=== PATIENT | male | born 1975 | race Two or more races ===

== ENCOUNTER 2018-06-22 01:04 | Inpatient (IN) | payer MEDICAID ==
[~2018-06-22] VITALS: Ht 167.6 cm; Wt 89.8 kg
[2018-06-22] MEDS ORDERED: OLAN15TA2 PO (01:37)
[2018-06-22] MEDS ORDERED: OLANZapine 5 MG RAPDIS TABLET PO PRN (01:45)
[2018-06-22 02:14] VITALS: BP 113/72
[2018-06-22] MEDS ORDERED: MAGNESIUM HYDROXIDE SUSPENSION 30 ML UDCUP PO PRN (05:45)
[2018-06-22] MEDS ORDERED: PETROLATUM,WHITE 71 GM JELLY TP PRN (05:45)
[2018-06-22] MEDS ORDERED: CloNIDine HCL 0.1 MG TABLET PO PRN (05:45)
[2018-06-22] MEDS ORDERED: GuaiFENesin/D-METHORPHAN [SUGAR-FREE] 200-20MG/10 ML SYRUP UDCUP PO PRN (05:45)
[2018-06-22] MEDS ORDERED: NICOTINE 14 MG/24 HOUR PATCH TD PRN (05:45)
[2018-06-22] MEDS ORDERED: DOCUSATE SODIUM 100 MG CAPSULE PO PRN (05:45)
[2018-06-22] MEDS ORDERED: ONDANSETRON HCL 4 MG TABLET PO PRN (05:45)
[2018-06-22] MEDS ORDERED: LOPERAMIDE HCL 2 MG CAPSULE PO PRN (05:45)
[2018-06-22] MEDS ORDERED: ALBUTEROL SULFATE HFA 90 MCG/PUFF 8 GM INHALER IH PRN (05:45)
[2018-06-22] MEDS ORDERED: IBUPROFEN 400 MG TABLET PO PRN (05:45)
[2018-06-22] MEDS ORDERED: ACETAMINOPHEN 325 MG TABLET PO PRN (05:45)
[2018-06-22] MEDS ORDERED: MAG HYDROX/AL HYDROX/SIMETH ES 30 ML SUSPENSION UDCUP PO PRN (05:45)
[2018-06-22 16:46] VITALS: BP 118/66
[2018-06-22] MEDS: OLANZapine 7.5 MG TABLET PO SCH (20:35)
[2018-06-23 10:06] VITALS: BP 109/60
[2018-06-23 16:12] VITALS: BP 140/90
[2018-06-23] MEDS: OLANZapine 7.5 MG TABLET PO SCH (20:06)
[2018-06-24 05:59] VITALS: BP 110/75
[2018-06-24 08:01] VITALS: BP 117/66
[2018-06-24 08:11] LABS: BASOPHILS % (AUTO) 0.4 % (0.0-2.0); EOSINOPHILS % (AUTO) 0.8 % (1.0-6.0); HEMATOCRIT 38.2 % (41-53); HEMOGLOBIN 12.8 g/dL (13.5-17.5); LYMPHOCYTES # (AUTO) 2.9 K/uL (1.0-4.8); LYMPHOCYTES % (AUTO) 19.1 % (22.0-44.0); MEAN CORPUSCULAR HEMOGLOBIN 29.4 pg (26.0-34.0); MEAN CORPUSCULAR HGB CONC 33.4 G/dL (31.0-37.0); MEAN CORPUSCULAR VOLUME 88 fL (80-100); MONOCYTES % (AUTO) 6.7 % (2.0-9.0); NEUTROPHILS # (AUTO) 11.1 K/uL (1.8-7.7); PLATELET COUNT (AUTO) 372 K/uL (150-450); RED BLOOD CELL COUNT(AUTO) 4.35 MIL/uL (4.50-5.90); RED CELL DISTRIBUTION WIDTH 14.7 % (11.5-14.5)
[2018-06-24 08:51] LABS: ALANINE AMINOTRANSFERASE 31 U/L (12-78); ALBUMIN 3.1 g/dL (3.4-5.0); ALKALINE PHOSPHATASE 63 U/L (46-116); ANION GAP 7 mmol/L (8-16); ASPARTATE AMINOTRANSFERASE 24 U/L (15-37); BILIRUBIN,TOTAL 0.2 mg/dL (0.1-1.0); CALCIUM, TOTAL 8.7 mg/dL (8.8-10.5); CARBON DIOXIDE 28 mmol/L (22-29); CHLORIDE 103 mmol/L (98-107); CHOL/HDL RATIO 4.4 (4.2-7.3); CHOLESTEROL 144 mg/dL (131-200); CREATININE 0.87 mg/dL (0.60-1.30); FREE T4 (FREE THYROXINE) 0.74 ng/dL (0.76-1.46); GLOMERULAR FILTR. RATE CALC > 60 mL/min (>60); GLUCOSE,RANDOM 94 mg/dL (70-110); HDL CHOLESTEROL 33 mg/dL (40-60); LDL CHOL (CALC.) 84 mg/dL (0-130); POTASSIUM 4.1 mmol/L (3.5-5.1); SODIUM SERUM 138 mmol/L (136-145); THYROID STIMULATING HORMONE 1.82 uIU/mL (0.36-3.74); TOTAL PROTEIN, SERUM 6.3 g/dL (6.4-8.2); TRIGLYCERIDES 135 mg/dL (15-150); UREA NITROGEN, BLOOD 16 mg/dL (7-18)
[2018-06-24 16:05] VITALS: BP 127/68
[2018-06-24] MEDS: LORazepam 2 MG TABLET PO PRN (16:37)
[2018-06-24] MEDS: OLANZapine 7.5 MG TABLET PO SCH (20:10)
[2018-06-24] MEDS: ZOLPIDEM TARTRATE 10 MG TABLET PO PRN (20:10)
[2018-06-25 05:50] VITALS: BP 115/72
[2018-06-25 08:01] VITALS: BP 112/64
[2018-06-25] MEDS: LORazepam 2 MG TABLET PO PRN (16:29)
[2018-06-25 16:32] VITALS: BP 117/84
[2018-06-25] MEDS: ZOLPIDEM TARTRATE 10 MG TABLET PO PRN (20:15)
[2018-06-25] MEDS: OLANZapine 7.5 MG TABLET PO SCH (20:15)
[2018-06-26 07:07] VITALS: BP 126/78
[2018-06-26 07:53] LABS: BASOPHILS % (AUTO) 0.5 % (0.0-2.0); EOSINOPHILS % (AUTO) 3.3 % (1.0-6.0); HEMATOCRIT 36.3 % (41-53); HEMOGLOBIN 12.5 g/dL (13.5-17.5); LYMPHOCYTES # (AUTO) 2.9 K/uL (1.0-4.8); LYMPHOCYTES % (AUTO) 40.3 % (22.0-44.0); MEAN CORPUSCULAR HEMOGLOBIN 29.9 pg (26.0-34.0); MEAN CORPUSCULAR HGB CONC 34.5 G/dL (31.0-37.0); MEAN CORPUSCULAR VOLUME 87 fL (80-100); MONOCYTES # (AUTO) 0.6 K/uL (0.1-1.0); MONOCYTES % (AUTO) 8.7 % (2.0-9.0); NEUTROPHILS # (AUTO) 3.4 K/uL (1.8-7.7); NEUTROPHILS % (AUTO) 47.2 % (40.0-70.0); PLATELET COUNT (AUTO) 354 K/uL (150-450); RED BLOOD CELL COUNT(AUTO) 4.18 MIL/uL (4.50-5.90); RED CELL DISTRIBUTION WIDTH 14.5 % (11.5-14.5)
[2018-06-26] MEDS ORDERED: OLAN7.5T9 PO (11:11)
== END 2018-06-26 15:45 | disposition home or self-care (01) | DRG 750 ==
LOC: B3A 01:49
DX: F25.1 Schizoaffective disorder, depressive type (principal); R45.851 Suicidal ideations; Z59.0 Homelessness; E78.00 Pure hypercholesterolemia, unspecified; Z28.21 Immunization not carried out because of patient refusal; I10 Essential (primary) hypertension; D72.829 Elevated white blood cell count, unspecified; F41.9 Anxiety disorder, unspecified; G89.29 Other chronic pain; Z91.5 Personal history of self-harm; M54.9 Dorsalgia, unspecified; Z88.0 Allergy status to penicillin
CPT/HCPCS: 83036; 84439; 84443; 90686

== ENCOUNTER 2018-08-15 09:57 | Inpatient (IN) | payer SELFPAY ==
[~2018-08-15] VITALS: Ht 167.6 cm; Wt 73.5 kg
[~2018-08-15 09:57] MED LIST: OLAN7.5T9 PO
[2018-08-15 10:45] LABS: BASOPHILS % (AUTO) 0.2 % (0.0-2.0); EOSINOPHILS % (AUTO) 1.1 % (1.0-6.0); HEMATOCRIT 40.4 % (41-53); HEMOGLOBIN 13.4 g/dL (13.5-17.5); LYMPHOCYTES % (AUTO) 27.2 % (22.0-44.0); MEAN CORPUSCULAR HGB CONC 33.1 G/dL (31.0-37.0); MEAN CORPUSCULAR VOLUME 88 fL (80-100); MONOCYTES # (AUTO) 0.6 K/uL (0.1-1.0); MONOCYTES % (AUTO) 8.6 % (2.0-9.0); NEUTROPHILS # (AUTO) 4.7 K/uL (1.8-7.7); NEUTROPHILS % (AUTO) 62.9 % (40.0-70.0); PLATELET COUNT (AUTO) 353 K/uL (150-450); RED BLOOD CELL COUNT(AUTO) 4.62 MIL/uL (4.50-5.90)
[2018-08-15 10:59] LABS: ALANINE AMINOTRANSFERASE 35 U/L (12-78); ALBUMIN 3.7 g/dL (3.4-5.0); ALKALINE PHOSPHATASE 80 U/L (46-116); ANION GAP 9 mmol/L (8-16); ASPARTATE AMINOTRANSFERASE 27 U/L (15-37); BILIRUBIN,TOTAL 0.3 mg/dL (0.1-1.0); CALCIUM, TOTAL 11.4 mg/dL (8.8-10.5); CARBON DIOXIDE 24 mmol/L (22-29); CHLORIDE 102 mmol/L (98-107); GLOMERULAR FILTR. RATE CALC > 60 mL/min (>60); GLUCOSE,RANDOM 110 mg/dL (70-110); POTASSIUM 3.8 mmol/L (3.5-5.1); SODIUM SERUM 135 mmol/L (136-145); TOTAL PROTEIN, SERUM 7.2 g/dL (6.4-8.2); UREA NITROGEN, BLOOD 8 mg/dL (7-18)
[2018-08-15 11:26] LABS: AMPHET/METH SCREEN,URINE POSITIVE (NEGATIVE); BARBITURATE SCREEN, URINE NEGATIVE (NEGATIVE); BENZODIAZEPINES SCREEN,URINE NEGATIVE (NEGATIVE); CANNABINOID SCREEN,URINE NEGATIVE (NEGATIVE); COCAINE SCREEN,URINE NEGATIVE (NEGATIVE); METHADONE SCREEN, URINE NEGATIVE (NEGATIVE); OPIATE SCREEN,URINE NEGATIVE (NEGATIVE)
[2018-08-15 11:28] LABS: PHENCYCLIDINE SCREEN,URINE NEGATIVE (NEGATIVE)
[2018-08-15] MEDS ORDERED: HALOPERIDOL 5 MG TABLET PO PRN (11:30)
[2018-08-15] MEDS ORDERED: ZOLPIDEM TARTRATE 10 MG TABLET PO PRN (11:30)
[2018-08-15] MEDS ORDERED: IBUPROFEN 400 MG TABLET PO PRN ×2 (12:15→13:30)
[2018-08-15] MEDS ORDERED: ACETAMINOPHEN 325 MG TABLET PO PRN ×2 (12:15→13:30)
[2018-08-15] MEDS ORDERED: GuaiFENesin/D-METHORPHAN [SUGAR-FREE] 200-20MG/10 ML SYRUP UDCUP PO PRN (13:30)
[2018-08-15] MEDS ORDERED: MAG HYDROX/AL HYDROX/SIMETH ES 30 ML SUSPENSION UDCUP PO PRN (13:30)
[2018-08-15] MEDS ORDERED: MAGNESIUM HYDROXIDE SUSPENSION 30 ML UDCUP PO PRN (13:30)
[2018-08-15] MEDS ORDERED: CloNIDine HCL 0.1 MG TABLET PO PRN (13:30)
[2018-08-15] MEDS ORDERED: ALBUTEROL SULFATE HFA 90 MCG/PUFF 8 GM INHALER IH PRN (13:30)
[2018-08-15] MEDS ORDERED: DOCUSATE SODIUM 100 MG CAPSULE PO PRN (13:30)
[2018-08-15] MEDS ORDERED: ONDANSETRON HCL 4 MG TABLET PO PRN (13:30)
[2018-08-15] MEDS ORDERED: PETROLATUM,WHITE 71 GM JELLY TP PRN (13:30)
[2018-08-15] MEDS: LORazepam 2 MG TABLET PO PRN (13:32)
[2018-08-15 14:19] VITALS: BP 126/85
[2018-08-15 20:07] VITALS: BP 102/65
[2018-08-15] MEDS: OLANZapine 5 MG TABLET PO SCH (20:37)
[2018-08-16 04:52] LABS: BASOPHILS % (AUTO) 0.4 % (0.0-2.0); EOSINOPHILS % (AUTO) 3.4 % (1.0-6.0); HEMATOCRIT 37.4 % (41-53); HEMOGLOBIN 12.9 g/dL (13.5-17.5); LYMPHOCYTES % (AUTO) 38.9 % (22.0-44.0); MEAN CORPUSCULAR HEMOGLOBIN 29.8 pg (26.0-34.0); MEAN CORPUSCULAR HGB CONC 34.6 G/dL (31.0-37.0); MEAN CORPUSCULAR VOLUME 86 fL (80-100); MONOCYTES # (AUTO) 0.8 K/uL (0.1-1.0); MONOCYTES % (AUTO) 9.6 % (2.0-9.0); NEUTROPHILS # (AUTO) 3.7 K/uL (1.8-7.7); NEUTROPHILS % (AUTO) 47.7 % (40.0-70.0); PLATELET COUNT (AUTO) 338 K/uL (150-450); RED BLOOD CELL COUNT(AUTO) 4.35 MIL/uL (4.50-5.90); RED CELL DISTRIBUTION WIDTH 14.7 % (11.5-14.5)
[2018-08-16 05:00] LABS: HEMOGLOBIN A1C 6.1 % (4.5-6.2)
[2018-08-16 05:13] LABS: ALANINE AMINOTRANSFERASE 32 U/L (12-78); ALBUMIN 3.2 g/dL (3.4-5.0); ALKALINE PHOSPHATASE 71 U/L (46-116); ANION GAP 4 mmol/L (8-16); ASPARTATE AMINOTRANSFERASE 24 U/L (15-37); BILIRUBIN,TOTAL 0.2 mg/dL (0.1-1.0); CALCIUM, TOTAL 8.9 mg/dL (8.8-10.5); CARBON DIOXIDE 27 mmol/L (22-29); CHLORIDE 106 mmol/L (98-107); CHOL/HDL RATIO 3.3 (4.2-7.3); CHOLESTEROL 117 mg/dL (131-200); CREATININE 1.01 mg/dL (0.60-1.30); GLOMERULAR FILTR. RATE CALC > 60 mL/min (>60); GLUCOSE,RANDOM 96 mg/dL (70-110); HDL CHOLESTEROL 36 mg/dL (40-60); LDL CHOL (CALC.) 59 mg/dL (0-130); POTASSIUM 3.9 mmol/L (3.5-5.1); SODIUM SERUM 137 mmol/L (136-145); THYROID STIMULATING HORMONE 2.09 uIU/mL (0.36-3.74); TOTAL PROTEIN, SERUM 5.9 g/dL (6.4-8.2); TRIGLYCERIDES 112 mg/dL (15-150); UREA NITROGEN, BLOOD 12 mg/dL (7-18)
[2018-08-16 08:17] VITALS: BP 115/70
[2018-08-16] MEDS: FLUoxetine HCL 20 MG CAPSULE PO SCH (09:05)
[2018-08-16 13:50] VITALS: BP 115/86
[2018-08-16 16:10] VITALS: BP 120/66
[2018-08-16] MEDS: LORazepam 2 MG TABLET PO PRN (17:05)
[2018-08-16] MEDS: OLANZapine 5 MG TABLET PO SCH (20:29)
[2018-08-17 03:42] VITALS: BP 118/79
[2018-08-17] MEDS: FLUoxetine HCL 20 MG CAPSULE PO SCH (09:14)
[2018-08-17] MEDS: LOPERAMIDE HCL 2 MG CAPSULE PO PRN (14:28)
[2018-08-17] MEDS: OLANZapine 5 MG TABLET PO SCH (20:31)
[2018-08-18 01:26] VITALS: BP 121/68
[2018-08-18] MEDS: LOPERAMIDE HCL 2 MG CAPSULE PO PRN ×2 (01:32→08:35)
[2018-08-18] MEDS: FLUoxetine HCL 20 MG CAPSULE PO SCH (08:27)
[2018-08-18 08:56] VITALS: BP 124/92
[2018-08-18] MEDS: OLANZapine 5 MG TABLET PO SCH (20:34)
[2018-08-19] MEDS: LOPERAMIDE HCL 2 MG CAPSULE PO PRN ×3 (00:06→20:04)
[2018-08-19 00:48] VITALS: BP 120/81
[2018-08-19 08:26] VITALS: BP 124/88
[2018-08-19] MEDS: FLUoxetine HCL 20 MG CAPSULE PO SCH (09:28)
[2018-08-19 16:39] VITALS: BP 119/70
[2018-08-19] MEDS: OLANZapine 5 MG TABLET PO SCH (20:04)
[2018-08-20 02:15] VITALS: BP 121/68
[2018-08-20] MEDS: FLUoxetine HCL 20 MG CAPSULE PO SCH (08:45)
[2018-08-20] MEDS ORDERED: FLUO-191 PO (11:05)
[2018-08-20] MEDS ORDERED: OLAN5TAB2 PO (11:05)
== END 2018-08-20 12:15 | disposition home or self-care (01) | DRG 885 ==
LOC: EMS 09:57 → AHU 12:39 → B2S 08-16 13:03
PROVIDERS: ADMIT Psychiatry & Neurology Psychiatry; ATTEND Psychiatry & Neurology Psychiatry
DX: F25.1 Schizoaffective disorder, depressive type (principal); E87.1 Hypo-osmolality and hyponatremia; R45.851 Suicidal ideations; D64.9 Anemia, unspecified; E78.5 Hyperlipidemia, unspecified; F17.200 Nicotine dependence, unspecified, uncomplicated; F19.90 Other psychoactive substance use, unspecified, uncomplicated; F41.9 Anxiety disorder, unspecified; I10 Essential (primary) hypertension; Z88.0 Allergy status to penicillin; Z59.0 Homelessness
CPT/HCPCS: 83036; 84443; G0480

== ENCOUNTER 2018-08-30 08:00 | Inpatient (IN) | payer MEDICAID ==
[~2018-08-30] VITALS: Ht 167.6 cm; Wt 80.3 kg
[~2018-08-30 08:00] MED LIST changes: +FLUO-191 PO; +OLAN5TAB2 PO; -OLAN7.5T9 PO
[2018-08-30] MEDS ORDERED: HALO2 PO (08:06)
[2018-08-30] MEDS ORDERED: BENZ2TAB10 PO (08:06)
[2018-08-30 11:00] LABS: BASOPHILS % (AUTO) 0.5 % (0.0-2.0); EOSINOPHILS % (AUTO) 0.7 % (1.0-6.0); HEMATOCRIT 38.4 % (41-53); HEMOGLOBIN 12.7 g/dL (13.5-17.5); LYMPHOCYTES # (AUTO) 2.8 K/uL (1.0-4.8); LYMPHOCYTES % (AUTO) 26.4 % (22.0-44.0); MEAN CORPUSCULAR HEMOGLOBIN 28.4 pg (26.0-34.0); MEAN CORPUSCULAR HGB CONC 33.1 G/dL (31.0-37.0); MEAN CORPUSCULAR VOLUME 86 fL (80-100); MONOCYTES # (AUTO) 0.8 K/uL (0.1-1.0); MONOCYTES % (AUTO) 7.9 % (2.0-9.0); NEUTROPHILS # (AUTO) 6.8 K/uL (1.8-7.7); NEUTROPHILS % (AUTO) 64.5 % (40.0-70.0); PLATELET COUNT (AUTO) 347 K/uL (150-450); RED BLOOD CELL COUNT(AUTO) 4.48 MIL/uL (4.50-5.90); RED CELL DISTRIBUTION WIDTH 14.5 % (11.5-14.5)
[2018-08-30 11:10] LABS: ANION GAP 6 mmol/L (8-16); CALCIUM, TOTAL 9.1 mg/dL (8.8-10.5); CARBON DIOXIDE 31 mmol/L (22-29); CHLORIDE 101 mmol/L (98-107); CREATININE 0.78 mg/dL (0.60-1.30); GLOMERULAR FILTR. RATE CALC > 60 mL/min (>60); GLUCOSE,RANDOM 98 mg/dL (70-110); POTASSIUM 3.8 mmol/L (3.5-5.1); SODIUM SERUM 138 mmol/L (136-145); UREA NITROGEN, BLOOD 11 mg/dL (7-18)
[2018-08-30] MEDS ORDERED: HALOPERIDOL 5 MG TABLET PO ONE (11:15)
[2018-08-30] MEDS ORDERED: BENZTROPINE MESYLATE 1 MG TABLET PO ONE (11:15)
[2018-08-30 11:16] LABS: ALANINE AMINOTRANSFERASE 24 U/L (12-78); ALBUMIN 3.3 g/dL (3.4-5.0); ALKALINE PHOSPHATASE 60 U/L (46-116); ASPARTATE AMINOTRANSFERASE 21 U/L (15-37); BILIRUBIN,TOTAL 0.2 mg/dL (0.1-1.0); TOTAL PROTEIN, SERUM 6.7 g/dL (6.4-8.2)
[2018-08-30] MEDS ORDERED: LORazepam 2 MG TABLET PO PRN (11:30)
[2018-08-30] MEDS ORDERED: HALOPERIDOL 5 MG TABLET PO PRN (11:30)
[2018-08-30 12:50] LABS: AMPHET/METH SCREEN,URINE NEGATIVE (NEGATIVE); BARBITURATE SCREEN, URINE NEGATIVE (NEGATIVE); BENZODIAZEPINES SCREEN,URINE NEGATIVE (NEGATIVE); CANNABINOID SCREEN,URINE NEGATIVE (NEGATIVE); COCAINE SCREEN,URINE NEGATIVE (NEGATIVE); METHADONE SCREEN, URINE NEGATIVE (NEGATIVE); OPIATE SCREEN,URINE NEGATIVE (NEGATIVE); PHENCYCLIDINE SCREEN,URINE NEGATIVE (NEGATIVE)
[2018-08-30 15:01] VITALS: BP 121/67
[2018-08-30] MEDS ORDERED: DOCUSATE SODIUM 100 MG CAPSULE PO PRN (15:15)
[2018-08-30] MEDS ORDERED: CloNIDine HCL 0.1 MG TABLET PO PRN (15:15)
[2018-08-30] MEDS ORDERED: IBUPROFEN 400 MG TABLET PO PRN (15:15)
[2018-08-30] MEDS ORDERED: MAGNESIUM HYDROXIDE SUSPENSION 30 ML UDCUP PO PRN (15:15)
[2018-08-30] MEDS ORDERED: GuaiFENesin/D-METHORPHAN [SUGAR-FREE] 200-20MG/10 ML SYRUP UDCUP PO PRN (15:15)
[2018-08-30] MEDS ORDERED: MAG HYDROX/AL HYDROX/SIMETH ES 30 ML SUSPENSION UDCUP PO PRN (15:15)
[2018-08-30] MEDS ORDERED: ONDANSETRON HCL 4 MG TABLET PO PRN (15:15)
[2018-08-30] MEDS ORDERED: ACETAMINOPHEN 325 MG TABLET PO PRN (15:15)
[2018-08-30] MEDS ORDERED: ALBUTEROL SULFATE HFA 90 MCG/PUFF 8 GM INHALER IH PRN (15:15)
[2018-08-30] MEDS ORDERED: NICOTINE 14 MG/24 HOUR PATCH TD PRN (15:15)
[2018-08-30] MEDS ORDERED: PETROLATUM,WHITE 71 GM JELLY TP PRN (15:15)
[2018-08-30] MEDS ORDERED: LOPERAMIDE HCL 2 MG CAPSULE PO PRN (15:15)
[2018-08-31] MEDS: OLANZapine 5 MG TABLET PO SCH (20:31)
[2018-09-01 00:46] VITALS: BP 120/69
[2018-09-01] MEDS: FLUoxetine HCL 20 MG CAPSULE PO SCH (08:17)
[2018-09-01] MEDS: OLANZapine 5 MG TABLET PO SCH (20:14)
[2018-09-02] MEDS: FLUoxetine HCL 20 MG CAPSULE PO SCH (08:36)
[2018-09-02] MEDS: OLANZapine 5 MG TABLET PO SCH (20:21)
[2018-09-03] MEDS: FLUoxetine HCL 20 MG CAPSULE PO SCH ×2 (08:02→09:00)
[2018-09-03 16:20] VITALS: BP 102/59
[2018-09-03] MEDS: OLANZapine 10 MG TABLET PO SCH (20:18)
[2018-09-04 02:00] VITALS: BP 110/68
[2018-09-04] MEDS: FLUoxetine HCL 20 MG CAPSULE PO SCH (09:24)
[2018-09-04] MEDS: OLANZapine 10 MG TABLET PO SCH (20:10)
[2018-09-05 00:36] VITALS: BP 110/72
[2018-09-05] MEDS: FLUoxetine HCL 20 MG CAPSULE PO SCH (09:00)
[2018-09-05 16:12] VITALS: BP 120/84
[2018-09-05] MEDS: ZOLPIDEM TARTRATE 10 MG TABLET PO PRN (20:20)
[2018-09-05] MEDS: OLANZapine 10 MG TABLET PO SCH (20:20)
[2018-09-06 00:33] VITALS: BP 110/64
[2018-09-06] MEDS: FLUoxetine HCL 20 MG CAPSULE PO SCH (08:56)
[2018-09-06 16:22] VITALS: BP 119/74
[2018-09-06] MEDS: OLANZapine 10 MG TABLET PO SCH (20:26)
[2018-09-06] MEDS: ZOLPIDEM TARTRATE 10 MG TABLET PO PRN (20:45)
[2018-09-07 06:42] VITALS: BP 125/80
[2018-09-07] MEDS: FLUoxetine HCL 20 MG CAPSULE PO SCH (08:26)
[2018-09-07] MEDS ORDERED: DOCUSATE SODIUM 250 MG CAPSULE PO SCH (12:00)
[2018-09-07] MEDS ORDERED: LACTULOSE 20 GM/30 ML SOLUTION UDCUP PO SCH (12:00)
[2018-09-07] MEDS ORDERED: OLAN10TA6 PO (12:40)
[2018-09-07] MEDS ORDERED: FLUO-191 PO (12:40)
== END 2018-09-07 14:15 | disposition home or self-care (01) | DRG 750 ==
LOC: EMS 08:02 → B2S 12:31
PROVIDERS: ADMIT Psychiatry & Neurology Psychiatry; ATTEND Psychiatry & Neurology Psychiatry
DX: F25.1 Schizoaffective disorder, depressive type (principal); R45.851 Suicidal ideations; Z59.0 Homelessness; D64.9 Anemia, unspecified; E78.5 Hyperlipidemia, unspecified; F17.200 Nicotine dependence, unspecified, uncomplicated; F19.90 Other psychoactive substance use, unspecified, uncomplicated; F31.9 Bipolar disorder, unspecified; F41.9 Anxiety disorder, unspecified; I10 Essential (primary) hypertension; Z88.0 Allergy status to penicillin; Z71.6 Tobacco abuse counseling
CPT/HCPCS: 87081; G0480

== ENCOUNTER 2018-09-18 11:29 | Inpatient (IN) | payer MEDICAID ==
[~2018-09-18] VITALS: Ht 167.6 cm; Wt 79.4 kg
[~2018-09-18 11:29] MED LIST changes: +OLAN10TA6 PO; -OLAN5TAB2 PO
[2018-09-18] MEDS ORDERED: HALOPERIDOL 5 MG TABLET PO PRN (17:00)
[2018-09-18] MEDS ORDERED: ZOLPIDEM TARTRATE 10 MG TABLET PO PRN (17:00)
[2018-09-18] MEDS ORDERED: LORazepam 2 MG TABLET PO PRN (17:00)
[2018-09-18 17:19] LABS: BASOPHILS % (AUTO) 0.4 % (0.0-2.0); HEMATOCRIT 37.7 % (41-53); HEMOGLOBIN 12.3 g/dL (13.5-17.5); LYMPHOCYTES # (AUTO) 3.5 K/uL (1.0-4.8); LYMPHOCYTES % (AUTO) 36.2 % (22.0-44.0); MEAN CORPUSCULAR HEMOGLOBIN 28.1 pg (26.0-34.0); MEAN CORPUSCULAR HGB CONC 32.8 G/dL (31.0-37.0); MEAN CORPUSCULAR VOLUME 86 fL (80-100); MONOCYTES # (AUTO) 0.7 K/uL (0.1-1.0); MONOCYTES % (AUTO) 7.2 % (2.0-9.0); NEUTROPHILS # (AUTO) 5.3 K/uL (1.8-7.7); NEUTROPHILS % (AUTO) 54.2 % (40.0-70.0); PLATELET COUNT (AUTO) 379 K/uL (150-450); RED BLOOD CELL COUNT(AUTO) 4.39 MIL/uL (4.50-5.90)
[2018-09-18 17:36] LABS: ANION GAP 12 mmol/L (8-16); CALCIUM, TOTAL 8.8 mg/dL (8.8-10.5); CARBON DIOXIDE 24 mmol/L (22-29); CHLORIDE 105 mmol/L (98-107); CREATININE 0.89 mg/dL (0.60-1.30); GLOMERULAR FILTR. RATE CALC > 60 mL/min (>60); GLUCOSE,RANDOM 119 mg/dL (70-110); POTASSIUM 3.5 mmol/L (3.5-5.1); SODIUM SERUM 141 mmol/L (136-145); UREA NITROGEN, BLOOD 11 mg/dL (7-18)
[2018-09-18 17:42] LABS: ALANINE AMINOTRANSFERASE 24 U/L (12-78); ALBUMIN 3.4 g/dL (3.4-5.0); ALKALINE PHOSPHATASE 63 U/L (46-116); ASPARTATE AMINOTRANSFERASE 25 U/L (15-37); BILIRUBIN,TOTAL 0.1 mg/dL (0.1-1.0); TOTAL PROTEIN, SERUM 6.4 g/dL (6.4-8.2)
[2018-09-18 18:18] LABS: AMPHET/METH SCREEN,URINE NEGATIVE (NEGATIVE); BARBITURATE SCREEN, URINE NEGATIVE (NEGATIVE); BENZODIAZEPINES SCREEN,URINE NEGATIVE (NEGATIVE); CANNABINOID SCREEN,URINE NEGATIVE (NEGATIVE); COCAINE SCREEN,URINE NEGATIVE (NEGATIVE); METHADONE SCREEN, URINE NEGATIVE (NEGATIVE); OPIATE SCREEN,URINE NEGATIVE (NEGATIVE)
[2018-09-18 18:19] LABS: PHENCYCLIDINE SCREEN,URINE NEGATIVE (NEGATIVE)
[2018-09-18 19:38] VITALS: BP 124/73
[2018-09-18] MEDS ORDERED: IBUPROFEN 400 MG TABLET PO PRN (22:00)
[2018-09-18] MEDS ORDERED: ACETAMINOPHEN 325 MG TABLET PO PRN (22:00)
[2018-09-18] MEDS ORDERED: MAG HYDROX/AL HYDROX/SIMETH ES 30 ML SUSPENSION UDCUP PO PRN (22:00)
[2018-09-18] MEDS ORDERED: DOCUSATE SODIUM 100 MG CAPSULE PO PRN (22:00)
[2018-09-18] MEDS ORDERED: GuaiFENesin/D-METHORPHAN [SUGAR-FREE] 200-20MG/10 ML SYRUP UDCUP PO PRN (22:00)
[2018-09-18] MEDS ORDERED: MAGNESIUM HYDROXIDE SUSPENSION 30 ML UDCUP PO PRN (22:00)
[2018-09-18] MEDS ORDERED: NICOTINE 14 MG/24 HOUR PATCH TD PRN (22:00)
[2018-09-18] MEDS ORDERED: ALBUTEROL SULFATE HFA 90 MCG/PUFF 8 GM INHALER IH PRN (22:00)
[2018-09-18] MEDS ORDERED: CloNIDine HCL 0.1 MG TABLET PO PRN (22:00)
[2018-09-18] MEDS ORDERED: ONDANSETRON HCL 4 MG TABLET PO PRN (22:00)
[2018-09-18] MEDS ORDERED: PETROLATUM,WHITE 28 GM JELLY TP PRN (22:00)
[2018-09-18] MEDS ORDERED: LOPERAMIDE HCL 2 MG CAPSULE PO PRN (22:00)
[2018-09-19 06:38] LABS: HEMOGLOBIN A1C 6.3 % (4.5-6.2)
[2018-09-19 06:56] LABS: CHOL/HDL RATIO 4.3 (4.2-7.3); THYROID STIMULATING HORMONE 2.09 uIU/mL (0.36-3.74)
[2018-09-19 16:48] VITALS: BP 113/71
[2018-09-19] MEDS: FERROUS SULFATE 325 MG EC TABLET PO SCH (17:01)
[2018-09-19] MEDS ORDERED: OLANZapine 10 MG TABLET PO SCH (21:00)
[2018-09-20] MEDS: FERROUS SULFATE 325 MG EC TABLET PO SCH ×2 (06:41→16:40)
[2018-09-20] MEDS ORDERED: FLUoxetine HCL 20 MG CAPSULE PO SCH (09:00)
[2018-09-20] MEDS ORDERED: FLUO-191 PO (15:54)
[2018-09-20] MEDS ORDERED: OLAN10TA3 PO (15:55)
[2018-09-20] MEDS ORDERED: FERR-89 PO (15:57)
== END 2018-09-20 17:30 | disposition home or self-care (01) | DRG 750 ==
LOC: EMS 11:29 → 3EI 18:46
PROVIDERS: ADMIT Psychiatry & Neurology Psychiatry; ATTEND Psychiatry & Neurology Psychiatry
DX: F25.1 Schizoaffective disorder, depressive type (principal); G40.909 Epilepsy, unspecified, not intractable, without status epilepticus; R45.851 Suicidal ideations; F41.9 Anxiety disorder, unspecified; I10 Essential (primary) hypertension; J44.9 Chronic obstructive pulmonary disease, unspecified; M19.90 Unspecified osteoarthritis, unspecified site; F17.210 Nicotine dependence, cigarettes, uncomplicated; D64.9 Anemia, unspecified; E03.9 Hypothyroidism, unspecified; E78.5 Hyperlipidemia, unspecified; F10.10 Alcohol abuse, uncomplicated; G47.00 Insomnia, unspecified; F32.9 Major depressive disorder, single episode, unspecified; Z59.0 Homelessness; Z71.41 Alcohol abuse counseling and surveillance of alcoholic; Z71.51 Drug abuse counseling and surveillance of drug abuser; Z88.0 Allergy status to penicillin
CPT/HCPCS: 83036; 84443; 87081; G0480